=== PATIENT | female | born 1990 | race Hispanic/Latino ===

== ENCOUNTER 2018-02-02 21:48 | Emergency (ER) | payer SELFPAY ==
[~2018-02-02] VITALS: Ht 162.6 cm; Wt 68.0 kg
== END 2018-02-02 23:31 | disposition home or self-care (01) ==
LOC: ED 21:48
DX: S09.90XA Unspecified injury of head, initial encounter (principal); W22.8XXA Striking against or struck by other objects, initial encounter
CPT/HCPCS: 99282